=== PATIENT | male | born 1970 | race African-American/Black ===

== ENCOUNTER 2018-04-25 10:50 | Outpatient (CLI) | payer BC ==
[~2018-04-25 10:50] MED LIST: Iopamidol 370 76% 100 ML VIAL ONE
--- NOTE | 2018-04-25 19:04 | CT ---
CT NECK WITH CONTRAST: Date: 04/25/18 Multiple axial tomograms obtained through the neck with IV enhancement. Multiplanar reconstructions o btained. INDICATION: Right-sided neck pain. Question right-sided neck mass. Patient states that he felt a mass; however, h e can no longer feel the mass. There is no skin marker placed as there is no palpable mass apparent a t this time. FINDINGS: Parotid glands, submandibular glands, and thyroid appear unremarkable. Review of the nasopharynx reveals a cystic structure in the midline in the region of the pharyngeal t onsils. This measures approximately 1.2 cm on the sagittal images. 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 Oropharynx is partially obscured by spray artifact from dental appliances. Base of tongue appears unr emarkable. There is asymmetry in the oropharynx on the left anteriorly along the base of tongue in th e region of the lingual tonsils. Recommend direct evaluation to rule out mucosal lesion at this site. Hypopharynx and larynx appear unremarkable. Crystallography Teacher space, parapharyngeal space, and retropharyngeal space appear unremarkable. Carotid space unremarkable. No evidence of adenopathy. Nonspecific Level I and Level II lymph nodes are seen, subcentimeter. Nons pecific supraclavicular nodes, Level IV on the left, subcentimeter. Small, nonspecific Level V nodes, subcentimeter. Visualized paranasal sinuses and mastoids are aerated. Cervical spine unremarkable. IMPRESSION: 1. Asymmetry at the oropharynx at the base of the tongue on the left in the region of the lingual to nsil. Recommend direct evaluation to rule out mucosal lesion at this site. 2. CT neck otherwise unremarkable. No adenopathy or right side neck mass identified. POS: [facility]
== END 2018-04-25 10:51 | disposition home or self-care (01) ==
LOC: BICCT 10:50
PROVIDERS: ATTEND Family Medicine
DX: M54.2 Cervicalgia (principal); R22.1 Localized swelling, mass and lump, neck; J39.2 Other diseases of pharynx
CPT/HCPCS: 70491